=== PATIENT | female | born 1995 | race African-American/Black ===

== ENCOUNTER 2017-10-11 06:31 | Emergency (ER) | payer SELFPAY ==
[~2017-10-11] VITALS: Ht 165.1 cm; Wt 54.4 kg
[2017-10-11 06:57] VITALS: BP 126/78
[2017-10-11 08:34] LABS: Urine Bacteria NONE SEEN /hpf (None Seen); Urine Blood 3+ /uL (Negative); Urine Specific Gravity 1.021 (1.001-1.035); Urine WBC 616 /hpf (0 - 5)
[2017-10-11] MEDS ORDERED: PHENAZOPYRIDINE HCL 100 MG TAB PO ONE (08:45)
== END 2017-10-11 08:56 | disposition home or self-care (01) ==
LOC: ER 06:31
DX: N39.0 Urinary tract infection, site not specified (principal)
CPT/HCPCS: 81001; 81025